=== PATIENT | female | born 1965 | race Two or more races ===

== ENCOUNTER 2025-10-08 10:50 | Outpatient (AMB) | payer BC, SELFPAY ==
--- NOTE | 2025-10-08 10:54 | MHC.OFFVIS ---
Intake Visit Reasons: 1YR RLS HPI Comments Details: 60 years old woman with hypertension, hyperlipidemia, and restless legs syndrome. She was doing okay with no new symptoms. Ropinirole was working for restless legs syndrome. Review of Systems Narrative - Gastrointestinal: Reports a sensation of smelly stomach. - Neurological: Denies any additional neurological symptoms. - Psychological: Reports stress related to socio-political issues. Physical Exam Neuro Other: Mental Status: Alert and oriented to person, place, and time. Normal attention. Normal spontaneous speech, fluency, and comprehension. Cranial Nerves: CN II: Visual quispe full to confrontation, visual acuity intact. CN III, IV, : Pupils equal, round, reactive to light and accommodation. Extraocular movements are normal. CN V: Facial sensation is normal. CN VII: Facial movements symmetrical. CN VIII: Hearing intact to bedside conversation is normal. CN IX, X: Palate elevates symmetrically. CN XI: Shoulder shrug and head turn symmetrical. CN XII: Tongue midline without atrophy or fasciculations. Extrapyramidal: Full facial expressions and blinking. No rigidity. Movements are appropriate with no tremor or abnormality. Speech: Normal; no dysarthria or tremor. Assessment & Plan Assessment & Plan (1) RLS (restless legs syndrome): Comment: NCV/EMG UE Mild to moderate right and mild left median neuropathy across the Carpal tunnel. 08/17/22. EMG/NCS at office in 2009: mild b/l CTS, b/l distal tibial neuropathy NCV/EMG UE 08/28/13 MILD BILATERAL MEDIAN NEUROPATHY ACROSS THE CARPAL TUNNEL AFFECTING THE SENSORY COMPONENTS. THERE IS NO SIGNIFICANT DIFFERENCE FROM THE STUDY IN 2010. Code(s): G25.81 - Restless legs syndrome Category: Medical Plan Impression: Restless legs syndrome Recommendations: Ropinirole 0.25 mg 2-3 tablets at bedtime or in the evening Coding Level of Care Code Est Pt Level 3 (72480) Diagnoses RLS (restless legs syndrome) G25.81
--- OUTSIDE RECORDS SUMMARY | 2025-10-08 22:27 | XMS_ITS | Data Portability ---
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 I will give her a week of ciprofloxacin given she grew Pseudomonas in the past. I will have her continue the steroid irrigations and check an immune panel brie Not available 04/20/2025 09:43:50 Plan of Treatment Reminders Order Date Submit Date Provider Last Modified By Organization Details Last Modified Time Details Appointments None recorded. Lab clostridium tetani toxoid IgG Ab, QN, IA, serum or plasma 2024 025 [facility] (Centralized Electronic Ordering - All Locations), Patient Can Go To The Location Of Their Choice, 00:29:54 haemophilus influenzae B IgG Ab, quantitativ e, serum, immunoassay 2024 025 [facility] (Centralized Electronic Ordering - All Locations), Patient Can Go To The Location Of Their Choice, 5 00:29:53 unlisted lab - pneumococca l Ab (23 serotype) 2024 025 [facility]), Patient Can Go To The Location Of Their Choice, 00:29:52 CBC w/ auto diff 2024 025 [facility]), Patient Can Go To The Location Of Their Choice, [address] 00:29:52 ige, total, serum 2024 025 [facility] (Centralized Electronic Ordering - All Locations), Patient Can Go To The Location Of Their Choice, [address] 00:29:54 immunoglobu elsa iga+igg+igm , quantitativ e, serum 2024 025 [facility]), Patient Can Go To The Location Of Their Choice, [address] 00:29:53 igg subclasses + total, serum 2024 [facility]), Patient Can Go To The Location Of Their Choice, [address] 00:29:53 Referral None recorded. Procedures None recorded. Surgeries None recorded. Imaging None recorded. Medication Orders ciprofloxac in 750 mg tablet 2024 [id number], [address] [place], [address], 09:03:42 Patient TargetsNo targets recorded. Patient Instructions Encounter Date Encounter Id Patient Instructions Last Modified By Organization Details Last Modified Time 05/29/2024 [id number] Patient complain s of fluid sensation in left ear with related hearing loss. Otologic exam unrevealing. Audiometric testing obtained today and reviewed with patient demonstrates bilateral neurosensory hearing loss, affecting the frequencies of human speech, with resultant decreased speech discrimination. Reviewed with patient left hearing loss is amenable to hearing aids; recommend left-sided amplification. Recommend annual audiometric testing, sooner with perceived change in hearing. All questions were answered. [email or web address] Not available 05/29/2024 15:06:30 Reason for Referral None Reported. Results Created Date Observation Date Name Description Value Unit Range Abnormal Flag Note LastModifiedBy Organization Detail LastModifiedTime 04/20/2004/21/2025 CBC WITH DIFFE RENTI AL/PL ATELE T WBC 7.1 x10e3 /uL 3.4-10 .8 normal Not Available [facility] ([facility]) [address] [place], [address], 04/27/2025 00:29:52 04/20/2004/21/2025 CBC WITH DIFFE RENTI AL/PL ATELE T RBC 4.23 x10e6 /uL 3.77-5 .28 normal Not Available [facility] ([facility]) [address] [place], [address], 04/27/2025 00:29:52 04/20/2004/21/2025 CBC WITH DIFFE RENTI AL/PL ATELE T hemoglobin 15.1 g/dL 11.1-1 5.9 normal Not Available [facility] ([facility]) [address] [place], [address], 04/27/2025 00:29:52 04/20/2004/21/2025 CBC WITH DIFFE RENTI AL/PL ATELE T hematocrit 43.4 % 34.0-4 6.6 normal Not Available [facility] ([facility]) [address] [place], [address], 04/27/2025 00:29:52 04/20/2004/21/2025 CBC WITH DIFFE RENTI AL/PL ATELE T MCV 103 fL 79-97 above high normal Not Available [facility] ([facility]) [address] [place], [address], 04/27/2025 00:29:52 04/20/2004/21/2025 CBC WITH DIFFE RENTI AL/PL ATELE T MCH 35.7 pg 26.6-3 3.0 above high normal Not Available [facility] ([facility]) [address] [place], [address], 04/27/2025 00:29:52 04/20/2004/21/2025 CBC WITH DIFFE RENTI AL/PL ATELE T MCHC 34.8 g/dL 31.5-3 5.7 normal Not Available [facility] ([facility]) [address] [facility], [place], [address], 04/27/2025 00:29:52 04/20/2004/21/2025 CBC WITH DIFFE RENTI AL/PL ATELE T RDW 11.9 % 11.7-1 5.4 Not Available [facility] ([facility]) [address] [facility], [place], [address], 04/27/2025 00:29:52 04/20/2004/21/2025 CBC WITH DIFFE RENTI AL/PL ATELE T platelets 224 x10e3 /uL 150-45 0 normal Not Available [facility] ([facility]) [address] [facility], [place], [address], 04/27/2025 00:29:52 04/20/2004/21/2025 CBC WITH DIFFE RENTI AL/PL ATELE T neutrophils 57 % not estab. normal Not Available [facility] ([facility]) [address] [facility], [place], [address], 04/27/2025 00:29:52 04/20/2004/21/2025 CBC WITH DIFFE RENTI AL/PL ATELE T lymphs 34 % not estab. normal Not Available [facility] ([facility]) [address] [facility], [place], [address], 04/27/2025 00:29:52 04/20/2004/21/2025 CBC WITH DIFFE RENTI AL/PL ATELE T monocytes 8 % not estab. normal Not Available [facility] ([facility]) [address] [facility], [place], [address], 04/27/2025 00:29:52 04/20/2004/21/2025 CBC WITH DIFFE RENTI AL/PL ATELE T eos 1 % not estab. normal Not Available [facility] ([facility]) [address] [facility], [place], [address], 04/27/2025 00:29:52 04/20/2004/21/2025 CBC WITH DIFFE RENTI AL/PL ATELE T basos 0 % not estab. normal Not Available [facility] ([facility]) [address] [facility], [place], [address], 04/27/2025 00:29:52 04/20/2004/21/2025 CBC WITH DIFFE RENTI AL/PL ATELE T immature cells RISK AND INSURANCE MANAGER Not Available [facility] ([facility]) [address] [place], [address], 04/27/2025 00:29:52 04/20/2004/21/2025 CBC WITH DIFFE RENTI AL/PL ATELE T neutrophils (absolute) 4.1 x10e3 /uL 1.4-7. 0 normal Not Available [facility] ([facility]) [address] [place], [address], 04/27/2025 00:29:52 04/20/2004/21/2025 CBC WITH DIFFE RENTI AL/PL ATELE T lymphs (absolute) 2.4 x10e3 /uL 0.7-3. 1 normal Not Available [facility] ([facility]) [address] [place], [address], 04/27/2025 00:29:52 04/20/2004/21/2025 CBC WITH DIFFE RENTI AL/PL ATELE T monocytes(ab solute) 0.5 x10e3 /uL 0.1-0. 9 normal Not Available [facility] ([facility]) [address] [place], [address], 04/27/2025 00:29:52 04/20/2004/21/2025 CBC WITH DIFFE RENTI AL/PL ATELE T eos (absolute) 0.1 x10e3 /uL 0.0-0. 4 normal Not Available [facility] ([facility]) [address] [facility], [place], [address], 04/27/2025 00:29:52 04/20/2004/21/2025 CBC WITH DIFFE RENTI AL/PL ATELE T baso (absolute) 0.0 x10e3 /uL 0.0-0. 2 normal Not Available [facility] ([facility]) [address] [facility], [place], [address], 04/27/2025 00:29:52 04/20/2004/21/2025 CBC WITH DIFFE RENTI AL/PL ATELE T immature granulocytes 0 % not estab. Not Available [facility] ([facility]) [address] [facility], [place], [address], 04/27/2025 00:29:52 04/20/2004/21/2025 CBC WITH DIFFE RENTI AL/PL ATELE T immature grans (abs) 0.0 x10e3 /uL 0.0-0. 1 Not Available [facility] ([facility]) [address] [facility], [place], [address], 04/27/2025 00:29:52 04/20/2004/21/2025 CBC WITH DIFFE RENTI AL/PL ATELE T NRBC RISK AND INSURANCE MANAGER Not Available [facility] ([facility]) [address] [place], [address], 04/27/2025 00:29:52 04/20/2004/21/2025 CBC WITH DIFFE RENTI AL/PL ATELE T hematology comments: RISK AND INSURANCE MANAGER Not Available [facility] ([facility]) [address] [place], [address], 04/27/2025 00:29:52 04/20/2004/27/2025 PNEUM OCOCC AL AB (23 SEROT YPE) pneumo Ab type 1* <0.1 ug/mL >1.3 below low normal Not Available [facility] [address] [place], [address], 04/27/2025 00:29:52 04/20/2004/27/2025 PNEUM OCOCC AL AB (23 SEROT YPE) pneumo Ab type 3* <0.1 ug/mL >1.3 below low normal Not Available [facility] [place] [address] [place], [address], 04/27/2025 00:29:52 04/20/20 25 04/27/2025 PNEUM OCOCC AL AB (23 SEROT YPE) pneumo Ab type 4* <0.1 ug/mL >1.3 below low normal Not Available [facility] [address] [place] [address] [place], [address], 04/27/2025 00:29:52 04/20/20 25 04/27/2025 PNEUM OCOCC AL AB (23 SEROT YPE) pneumo Ab type 8* 42.6 ug/mL >1.3 Not Available [facility] [address] [place] [address] [place], [address], 04/27/2025 00:29:52 04/20/20 25 04/27/2025 PNEUM OCOCC AL AB (23 SEROT YPE) pneumo Ab type 9 (9N)* 3.0 ug/mL >1.3 Not Available [facility] [place], [address], 04/27/2025 00:29:52 04/20/2004/27/2025 PNEUM OCOCC AL AB (23 SEROT YPE) pneumo Ab type 12 (12F)* <0.1 ug/mL >1.3 below low normal Not Available [facility] [address] [place] [address] [place], [address], 04/27/2025 00:29:52 04/20/20 25 04/27/2025 PNEUM OCOCC AL AB (23 SEROT YPE) pneumo Ab type 14* 10.1 ug/mL >1.3 Not Available [facility] [address] [place], [address], 04/27/2025 00:29:52 04/20/20 25 04/27/2025 PNEUM OCOCC AL AB (23 SEROT YPE) pneumo Ab type 17 (17F)* 17.5 ug/mL >1.3 Not Available [facility] [address] [place] [address] [place], [address], 04/27/2025 00:29:52 04/20/20 25 04/27/2025 PNEUM OCOCC AL AB (23 SEROT YPE) pneumo Ab type 19 (19F)* <0.1 ug/mL >1.3 below low normal Not Available [facility] [address] [place] [address] [place], [address], 04/27/2025 00:29:52 04/20/20 25 04/27/2025 PNEUM OCOCC AL AB (23 SEROT YPE) pneumo Ab type 2* 5.0 ug/mL >1.3 Not Available [facility] [address] [place] [address] [place], [address], 04/27/2025 00:29:52 04/20/20 25 04/27/2025 PNEUM OCOCC AL AB (23 SEROT YPE) pneumo Ab type 20* 2.1 ug/mL >1.3 Not Available [facility] [address] [place], [address], 04/27/2025 00:29:52 04/20/20 25 04/27/2025 PNEUM OCOCC AL AB (23 SEROT YPE) pneumo Ab type 22 (22F)* 0.1 ug/mL >1.3 below low normal Not Available [facility] [address] [place], [address], 04/27/2025 00:29:52 04/20/20 25 04/27/2025 PNEUM OCOCC AL AB (23 SEROT YPE) pneumo Ab type 23 (23F)* 2.0 ug/mL >1.3 Not Available [facility] [address] [place] [address] [place], [address], 04/27/2025 00:29:52 04/20/20 25 04/27/2025 PNEUM OCOCC AL AB (23 SEROT YPE) pneumo Ab type 26 (6B)* 0.5 ug/mL >1.3 below low normal Not Available [facility] [address] [place] [address] [place], [address], 04/27/2025 00:29:52 04/20/2004/27/2025 PNEUM OCOCC AL AB (23 SEROT YPE) pneumo Ab type 34 (10A)* 39.5 ug/mL >1.3 Not Available [facility] [address] [place] [address] [place], [address], 04/27/2025 00:29:52 04/20/20 25 04/27/2025 PNEUM OCOCC AL AB (23 SEROT YPE) pneumo Ab type 43 (11A)* 0.6 ug/mL >1.3 below low normal Not Available [facility] [address] [place] [address] [place], [address], 04/27/2025 00:29:52 04/20/2004/27/2025 PNEUM OCOCC AL AB (23 SEROT YPE) pneumo Ab type 5* 2.9 ug/mL >1.3 Not Available [facility] [address] [place] [address] [place], [address], 04/27/2025 00:29:52 04/20/2004/27/2025 PNEUM OCOCC AL AB (23 SEROT YPE) pneumo Ab type 51 (7F)* 16.5 ug/mL >1.3 Not Available [facility] [address] [place] [address] [place], [address], 04/27/2025 00:29:52 04/20/20 25 04/27/2025 PNEUM OCOCC AL AB (23 SEROT YPE) pneumo Ab type 54 (15B)* 2.7 ug/mL >1.3 Not Available [facility] [address] [place], [address], 04/27/2025 00:29:52 04/20/20 25 04/27/2025 PNEUM OCOCC AL AB (23 SEROT YPE) pneumo Ab type 56 (18C)* 2.0 ug/mL >1.3 Not Available [facility] [address] [place], [address], 04/27/2025 00:29:52 04/20/20 25 04/27/2025 PNEUM OCOCC AL AB (23 SEROT YPE) pneumo Ab type 57 (19A)* 6.1 ug/mL >1.3 Not Available [facility] [address] [place], [address], 04/27/2025 00:29:52 04/20/20 25 04/27/2025 PNEUM OCOCC AL AB (23 SEROT YPE) pneumo Ab type 68 (9V)* 0.5 ug/mL >1.3 below low normal Not Available [facility] [address] [place], [address], 04/27/2025 00:29:52 04/20/2004/27/2025 PNEUM OCOCC AL AB (23 SEROT YPE) pneumo Ab type 70 (33F)* 9.5 ug/mL >1.3 *This test was devel oped and its perfo rmanc e juan cteri stics deter mined by [employer] [facility]. It has not been clear ed or appro sparkle by the U.S. Food and Drug Admin istra tion. FLAG Inter preta tion: A = Abnor mal, H = High, L = Low Not Available [facility] [address] [place], [address], 04/27/2025 00:29:52 04/20/20 25 04/21/2025 IGG, SUBCL ASSES (1-4) immunoglobul in g, qn, serum 1155 mg/dL 586-16 02 Not Available [facility] ([facility]) [address] [place], [address], 04/27/2025 00:29:53 04/20/20 25 04/24/2025 IGG, SUBCL ASSES (1-4) IgG, subclass 1 632 mg/dL 248-81 0 Not Available [facility] ([facility]) [address] [place], [address], 04/27/2025 00:29:53 04/20/20 25 04/24/2025 IGG, SUBCL ASSES (1-4) IgG, subclass 2 340 mg/dL 130-55 5 Not Available [facility] ([facility]) [address] [place], [address], 04/27/2025 00:29:53 04/20/20 25 04/24/2025 IGG, SUBCL ASSES (1-4) IgG, subclass 3 39 mg/dL 15-102 Not Available [facility] ([facility]) [address] [place], [address], 04/27/2025 00:29:53 04/20/20 25 04/24/2025 IGG, SUBCL ASSES (1-4) IgG, subclass 4 37 mg/dL 2-96 Not Available [facility] ([facility]) [address] [place], [address], 04/27/2025 00:29:53 04/20/2004/21/2025 IMMUN OGLOB ULINS A/G/M , QN, SER immunoglobul in A, qn, serum 301 mg/dL 87-352 normal Not Available [facility] ([facility]) [address] [place], [address], 04/27/2025 00:29:53 04/20/20 25 04/21/2025 IMMUN OGLOB ULINS A/G/M , QN, SER immunoglobul in M, qn, serum 318 mg/dL 26-217 above high normal Not Available [facility] ([facility]) [address] [facility], [place], [address], 04/27/2025 00:29:53 04/20/20 25 04/25/2025 HAEMO PHILU S INFLU ENZAE B IGG haemophilus influenzae B IgG 5.88 ug/mL NOTE: An anti- Hib level of 0.15 ug/mL is gener ally accep brody as the minim um level for prote ction . Optim al prote ction post- vacci natio n requi res a level great er than 1.00 ug/mL . Not Available [facility] ([facility]) [address] [facility], [place], [address], 04/27/2025 00:29:53 04/20/20 25 04/23/2025 TETAN US ANTIT OXOID IGG AB tetanus antitoxoid IgG Ab 3.08 IU/mL <0.10 Inter preta tion: Non-P rotec tive <0.10 Prote ctive >=0.1 0 Resul ts for this test are for resea rch purpo ses only by the assay 's manuf actur er. The perfo rmanc e juan cteri stics of this produ ct have not been estab wiliam d. Resul ts shoul d not be used as a diagn ostic proce dure witho ut confi rmati on of the diagn osis by [facility] medic ally estab lishe d diagn ostic produ ct or proce dure. Not Available [facility] ([facility]) [address] [facility], [place], [address], 04/27/2025 00:29:54 04/20/20 25 04/21/2025 IMMUN OGLOB ULIN E, TOTAL immunoglobul in E, total 1106 IU/mL 6-495 above high normal Not Available [facility] ([facility]) [address] [facility], [place], [address], 04/27/2025 00:29:54 06/21/2006/22/2025 CBC WITH DIFFE RENTI AL/PL ATELE T WBC 6.0 x10e3 /uL 3.4-10 .8 normal Not Available [facility] ([facility]) [address] [facility], [place], [address], 06/28/2025 01:32:48 06/21/2006/22/2025 CBC WITH DIFFE RENTI AL/PL ATELE T RBC 4.26 x10e6 /uL 3.77-5 .28 normal Not Available [facility] ([facility]) [address] [facility], [place], [address], 06/28/2025 01:32:48 06/21/2006/22/2025 CBC WITH DIFFE RENTI AL/PL ATELE T hemoglobin 15.0 g/dL 11.1-1 5.9 normal Not Available [facility] ([facility]) [address] [place], [address], 06/28/2025 01:32:48 06/21/2006/22/2025 CBC WITH DIFFE RENTI AL/PL ATELE T hematocrit 44.0 % 34.0-4 6.6 normal Not Available [facility] ([facility]) [address] [place], [address], 06/28/2025 01:32:48 06/21/2006/22/2025 CBC WITH DIFFE RENTI AL/PL ATELE T MCV 103 fL 79-97 above high normal Not Available [facility] ([facility]) [address] [place], [address], 06/28/2025 01:32:48 06/21/2006/22/2025 CBC WITH DIFFE RENTI AL/PL ATELE T MCH 35.2 pg 26.6-3 3.0 above high normal Not Available [facility] ([facility]) [address] [facility], [place], [address], 06/28/2025 01:32:48 06/21/20 25 06/22/2025 CBC WITH DIFFE RENTI AL/PL ATELE T MCHC 34.1 g/dL 31.5-3 5.7 normal Not Available [facility] ([facility]) [address] [facility], [place], [address], 06/28/2025 01:32:48 06/21/20 25 06/22/2025 CBC WITH DIFFE RENTI AL/PL ATELE T RDW 12.1 % 11.7-1 5.4 Not Available [facility] ([facility]) [address] [facility], [place], [address], 06/28/2025 01:32:48 06/21/20 25 06/22/2025 CBC WITH DIFFE RENTI AL/PL ATELE T platelets 247 x10e3 /uL 150-45 0 normal Not Available [facility] ([facility]) [address] [facility], [place], [address], 06/28/2025 01:32:48 06/21/20 25 06/22/2025 CBC WITH DIFFE RENTI AL/PL ATELE T neutrophils 59 % not estab. normal Not Available [facility] ([facility]) [address] [facility], [place], [address], 06/28/2025 01:32:48 06/21/20 25 06/22/2025 CBC WITH DIFFE RENTI AL/PL ATELE T lymphs 31 % not estab. normal Not Available [facility] ([facility]) [address] [place], [address], 06/28/2025 01:32:48 06/21/20 25 06/22/2025 CBC WITH DIFFE RENTI AL/PL ATELE T monocytes 8 % not estab. normal Not Available [facility] ([facility]) [address] [facility], [place], [address], 06/28/2025 01:32:48 06/21/2006/22/2025 CBC WITH DIFFE RENTI AL/PL ATELE T eos 1 % not estab. normal Not Available [facility] ([facility]) [address] [facility], [place], [address], 06/28/2025 01:32:48 06/21/2006/22/2025 CBC WITH DIFFE RENTI AL/PL ATELE T basos 1 % not estab. normal Not Available [facility] ([facility]) [address] [facility], [place], [address], 06/28/2025 01:32:48 06/21/2006/22/2025 CBC WITH DIFFE RENTI AL/PL ATELE T immature cells RISK AND INSURANCE MANAGER Not Available [facility] ([facility]) [address] [facility], [place], [address], 06/28/2025 01:32:48 06/21/20 25 06/22/2025 CBC WITH DIFFE RENTI AL/PL ATELE T neutrophils (absolute) 3.5 x10e3 /uL 1.4-7. 0 normal Not Available [facility] ([facility]) [address] [place], [address], 06/28/2025 01:32:48 06/21/2006/22/2025 CBC WITH DIFFE RENTI AL/PL ATELE T lymphs (absolute) 1.9 x10e3 /uL 0.7-3. 1 normal Not Available [facility] ([facility]) [address] [place], [address], 06/28/2025 01:32:48 06/21/20 25 06/22/2025 CBC WITH DIFFE RENTI AL/PL ATELE T monocytes(ab solute) 0.5 x10e3 /uL 0.1-0. 9 normal Not Available [facility] ([facility]) [address] [facility], [place], [address], 06/28/2025 01:32:48 06/21/2006/22/2025 CBC WITH DIFFE RENTI AL/PL ATELE T eos (absolute) 0.1 x10e3 /uL 0.0-0. 4 normal Not Available [facility] ([facility]) [address] [facility], [place], [address], 06/28/2025 01:32:48 06/21/2006/22/2025 CBC WITH DIFFE RENTI AL/PL ATELE T baso (absolute) 0.0 x10e3 /uL 0.0-0. 2 normal Not Available [facility] ([facility]) [address] [facility], [place], [address], 06/28/2025 01:32:48 06/21/2006/22/2025 CBC WITH DIFFE RENTI AL/PL ATELE T immature granulocytes 0 % not estab. Not Available [facility] ([facility]) [address] [facility], [place], [address], 06/28/2025 01:32:48 06/21/2006/22/2025 CBC WITH DIFFE RENTI AL/PL ATELE T immature grans (abs) 0.0 x10e3 /uL 0.0-0. 1 Not Available [facility] ([facility]) [address] [facility], [place], [address], 06/28/2025 01:32:48 06/21/2006/22/2025 CBC WITH DIFFE RENTI AL/PL ATELE T NRBC RISK AND INSURANCE MANAGER Not Available [facility] ([facility]) [address] [place], [address], 06/28/2025 01:32:48 06/21/20 25 06/22/2025 CBC WITH DIFFE RENTI AL/PL ATELE T hematology comments: RISK AND INSURANCE MANAGER Not Available [facility] ([facility]) [address] [place], [address], 06/28/2025 01:32:48 06/21/2006/28/2025 PNEUM OCOCC AL AB (23 SEROT YPE) pneumo Ab type 1* 1.3 ug/mL >1.3 below low normal Not Available [facility] [address] [place], [address], 06/28/2025 01:32:49 06/21/20 25 06/28/2025 PNEUM OCOCC AL AB (23 SEROT YPE) pneumo Ab type 3* 0.2 ug/mL >1.3 below low normal Not Available [facility] [address] [place], [address], 06/28/2025 01:32:49 06/21/2006/28/2025 PNEUM OCOCC AL AB (23 SEROT YPE) pneumo Ab type 4* 0.5 ug/mL >1.3 below low normal Not Available [facility] [address] [place], [address], 06/28/2025 01:32:49 06/21/2006/28/2025 PNEUM OCOCC AL AB (23 SEROT YPE) pneumo Ab type 8* 25.3 ug/mL >1.3 Not Available [facility] [address] [place], [address], 06/28/2025 01:32:49 06/21/2006/28/2025 PNEUM OCOCC AL AB (23 SEROT YPE) pneumo Ab type 9 (9N)* 3.8 ug/mL >1.3 Not Available [facility] [address] [place], [address], 06/28/2025 01:32:49 06/21/20 25 06/28/2025 PNEUM OCOCC AL AB (23 SEROT YPE) pneumo Ab type 12 (12F)* 0.5 ug/mL >1.3 below low normal Not Available [facility] [address] [place] [address] [place], [address], 06/28/2025 01:32:49 06/21/2006/28/2025 PNEUM OCOCC AL AB (23 SEROT YPE) pneumo Ab type 14* 7.4 ug/mL >1.3 Not Available [facility] [address] [place] [address] [place], [address], 06/28/2025 01:32:49 06/21/20 25 06/28/2025 PNEUM OCOCC AL AB (23 SEROT YPE) pneumo Ab type 17 (17F)* 7.8 ug/mL >1.3 Not Available [facility] [address] [place] [address] [place], [address], 06/28/2025 01:32:49 06/21/20 25 06/28/2025 PNEUM OCOCC AL AB (23 SEROT YPE) pneumo Ab type 19 (19F)* 6.2 ug/mL >1.3 Not Available [facility] [address] [place] [address] [place], [address], 06/28/2025 01:32:49 06/21/20 25 06/28/2025 PNEUM OCOCC AL AB (23 SEROT YPE) pneumo Ab type 2* 5.8 ug/mL >1.3 Not Available [facility] [address] [place], [address], 06/28/2025 01:32:49 06/21/20 25 06/28/2025 PNEUM OCOCC AL AB (23 SEROT YPE) pneumo Ab type 20* 2.6 ug/mL >1.3 Not Available [facility] [address] [place], [address], 06/28/2025 01:32:49 06/21/20 25 06/28/2025 PNEUM OCOCC AL AB (23 SEROT YPE) pneumo Ab type 22 (22F)* 4.1 ug/mL >1.3 Not Available [facility] [address] [place] [address] [place], [address], 06/28/2025 01:32:49 06/21/2006/28/2025 PNEUM OCOCC AL AB (23 SEROT YPE) pneumo Ab type 23 (23F)* 13.5 ug/mL >1.3 Not Available [facility] [address] [place] [address] [place], [address], 06/28/2025 01:32:49 06/21/2006/28/2025 PNEUM OCOCC AL AB (23 SEROT YPE) pneumo Ab type 26 (6B)* 10.9 ug/mL >1.3 Not Available [facility] [address] [place] [address] [place], [address], 06/28/2025 01:32:49 06/21/2006/28/2025 PNEUM OCOCC AL AB (23 SEROT YPE) pneumo Ab type 34 (10A)* >44.1 ug/mL >1.3 Not Available [facility] [address] [place] [address] [place], [address], 06/28/2025 01:32:49 06/21/2006/28/2025 PNEUM OCOCC AL AB (23 SEROT YPE) pneumo Ab type 43 (11A)* 1.2 ug/mL >1.3 below low normal Not Available [facility] [address] [place] [address] [place], [address], 06/28/2025 01:32:49 06/21/2006/28/2025 PNEUM OCOCC AL AB (23 SEROT YPE) pneumo Ab type 5* 5.3 ug/mL >1.3 Not Available [facility] [address] [place] [address] [place], [address], 06/28/2025 01:32:49 07/3106/28/2025 PNEUM OCOCC AL AB (23 SEROT YPE) pneumo Ab type 51 (7F)* 14.5 ug/mL >1.3 Not Available [facility] [address] [place] [address] [place], [address], 06/28/2025 01:32:49 06/21/2006/28/2025 PNEUM OCOCC AL AB (23 SEROT YPE) pneumo Ab type 54 (15B)* 17.2 ug/mL >1.3 Not Available [facility] [address] [place] [address] [place], [address], 06/28/2025 01:32:49 06/21/2006/28/2025 PNEUM OCOCC AL AB (23 SEROT YPE) pneumo Ab type 56 (18C)* >12.2 ug/mL >1.3 Not Available [facility] [address] [place] [address] [place], [address], 06/28/2025 01:32:49 06/21/2006/28/2025 PNEUM OCOCC AL AB (23 SEROT YPE) pneumo Ab type 57 (19A)* 4.8 ug/mL >1.3 Not Available [facility] [address] [place], [address], 06/28/2025 01:32:49 06/21/2006/28/2025 PNEUM OCOCC AL AB (23 SEROT YPE) pneumo Ab type 68 (9V)* 2.1 ug/mL >1.3 Not Available [facility] [address] [place] [address] [place], [address], 06/28/2025 01:32:49 06/21/2006/28/2025 PNEUM OCOCC AL AB (23 SEROT YPE) pneumo Ab type 70 (33F)* 6.0 ug/mL >1.3 *This test was devel oped and its perfo rmanc e juan cteri stics deter mined by [employer] [facility]. It has not been clear ed or appro sparkle by the U.S. Food and Drug Admin istra tion. FLAG Inter preta tion: A = Abnor mal, H = High, L = Low Not Available [facility] [address] [place], [address], 06/28/2025 01:32:49 06/21/2006/22/2025 IGG, SUBCL ASSES (1-4) immunoglobul in g, qn, serum 1286 mg/dL 586-16 02 Not Available [facility] ([facility]) [address] [place], [address], 06/28/2025 01:32:49 06/21/20 25 06/23/2025 IGG, SUBCL ASSES (1-4) IgG, subclass 1 710 mg/dL 248-81 0 Not Available [facility] ([facility]) [address] [place], [address], 06/28/2025 01:32:49 06/21/20 25 06/23/2025 IGG, SUBCL ASSES (1-4) IgG, subclass 2 350 mg/dL 130-55 5 Not Available [facility] ([facility]) [address] [place], [address], 06/28/2025 01:32:49 06/21/2006/23/2025 IGG, SUBCL ASSES (1-4) IgG, subclass 3 36 mg/dL 15-102 Not Available [facility] ([facility]) [address] [place], [address], 06/28/2025 01:32:49 06/21/2006/23/2025 IGG, SUBCL ASSES (1-4) IgG, subclass 4 41 mg/dL 2-96 Not Available [facility] ([facility]) [address] [place], [address], 06/28/2025 01:32:49 06/21/20 25 06/22/2025 IMMUN OGLOB ULINS A/G/M , QN, SER immunoglobul in A, qn, serum 310 mg/dL 87-352 normal Not Available [facility] ([facility]) [address] [place], [address], 06/28/2025 01:32:50 06/21/20 25 06/22/2025 IMMUN OGLOB ULINS A/G/M , QN, SER immunoglobul in M, qn, serum 293 mg/dL 26-217 above high normal Not Available [facility] ([facility]) [address] [place], [address], 06/28/2025 01:32:50 06/21/20 25 06/27/2025 HAEMO PHILU S INFLU ENZAE B IGG haemophilus influenzae B IgG 2.49 ug/mL NOTE: An anti- Hib level of 0.15 ug/mL is gener ally accep brody as the minim um level for prote ction . Optim al prote ction post- vacci natio n requi res a level great er than 1.00 ug/mL . Not Available [facility] ([facility]) [address] [facility], [place], [address], 06/28/2025 01:32:50 06/21/20 25 06/22/2025 TETAN US ANTIT OXOID IGG AB tetanus antitoxoid IgG Ab 4.76 IU/mL <0.10 Inter preta tion: Non-P rotec tive <0.10 Prote ctive >=0.1 0 Resul ts for this test are for resea rch purpo ses only by the assay 's manuf actur er. The perfo rmanc e juan cteri stics of this produ ct have not been estab wiliam monroe. Resul ts shoul d not be used as a diagn ostic proce dure witho ut confi rmati on of the diagn osis by [facility] medic ally estab lishe d diagn ostic produ ct or proce dure. Not Available [facility] ([facility]) [address] [facility], [place], [address], 06/28/2025 01:32:50 06/21/20 25 06/23/2025 IMMUN OGLOB ULIN E, TOTAL immunoglobul in E, total 912 IU/mL 6-495 above high normal Not Available [facility] ([facility]) [address] [facility], [place], [address], 06/28/2025 01:32:51 05/29/20 24 audio gram No observ ation record ed. [email or web address] Not Available 06/2024 13:38:39 07/11/20 24 01/01/2023 imagi ng/di agnos tic resul t No observ ation record ed. [email or web address] Not Available 15:32:19 07/11/20 24 01/16/2023 imagi ng/di agnos tic resul t No observ ation record ed. [email or web address] Not Available 15:32:21 07/11/20 24 02/04/2023 imagi ng/di agnos tic resul t No observ ation record ed. [email or web address] Not Available 15:32:23 07/11/20 24 02/15/2023 imagi ng/di agnos tic resul t No observ ation record ed. [email or web address] Not Available 15:32:24 07/11/20 24 03/25/2021 imagi ng/di agnos tic resul t No observ ation record ed. [email or web address] Not Available 15:32:26 07/11/20 24 05/06/2021 imagi ng/di agnos tic resul t No observ ation record ed. [email or web address] Not Available 15:32:30 07/11/20 24 05/09/2021 imagi ng/di agnos tic resul t No observ ation record ed. [email or web address] Not Available 15:32:36 07/11/20 24 08/04/2019 imagi ng/di agnos tic resul t No observ ation record ed. [email or web address] Not Available 15:32:42 07/11/20 24 08/21/2020 imagi ng/di stellaos tic resul t No observ ation record ed. [email or web address] Not Available 15:32:50 07/11/20 24 01/01/2023 audio gram No observ ation record ed. [email or web address] Not Available 15:33:07 07/11/20 24 02/15/2023 audio gram No observ ation record ed. [email or web address] Not Available 15:33:14 Result Notes None recorded. Problems Name Problem SNOMED Code Status Onset Date Resolution Date Notes Provider Name and Address Organization Details Recorded Time Chronic ethmoidal sinusitis 84799748 Active 2014 Ethmoidal sinusitis , chronic; Condition : stable No te: Date Diagnosed : 01/28/2015 10:10 AM (473.2) Not Available [facility] 4 03:09:13 Allergic rhinitis 91831486 Active 2018 Perennial allergic rhinitis; Note: Date Diagnosed : 08/04/2019 10:24 AM (J30.89) Not Available [facility] 4 03:09:13 Sensorine ural hearing loss of bilateral ears 242183236 Active 2018 Sensorine ural hearing loss, bilateral ; Note: Date Diagnosed : 08/04/2019 9:59 AM (H90.3) Not Available [facility] 4 03:09:13 Pain of left temporoma ndibular joint 32094972978 214054 Active 2018 Arthralgi a of left temporoma ndibular joint; Note: Date Diagnosed : 9 1:35 PM (M26.622) Not Available [facility] 4 03:09:12 Acute sinusitis 20058668 Active 2018 Other acute sinusitis ; Note: Date Diagnosed : 9 1:36 PM (J01.80) Note: Date Diagnosed : 9 1:36 PM (J01.80) Not Available [facility] 4 01:20:21 Referred otalgia 94262022 Active 2018 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; Note: Date Diagnosed : 9 1:34 PM (388.72) Not Available [facility] 4 03:09:14 Chronic sinusitis 68116690 Active 2019 Chronic sinusitis ; [facility] Treatment : new problem (to examiner) : additiona l workup planned N ote: Date Diagnosed : 12/31/2014 9:27 AM (473.9) ; Start Date : 5 Other chronic sinusitis ; Note: Date Diagnosed : 08/21/2020 2:13 PM (J32.8) SEVEN CALDERON MD [address] [place] [address], [facility] [place], [address] , [facility] 5 09:02:54 Mass of neck 113476208 Active 2019 Localized swelling, mass and lump, neck; Note: Date Diagnosed : 08/21/2020 2:13 PM (R22.1) Not Available [facility] 4 03:09:12 Neck swelling 685939660 Active 2019 Localized swelling, mass and lump, neck; Note: Date Diagnosed : 08/21/2020 2:13 PM (R22.1) Not Available [facility] 4 03:09:12 Mycosis 0304321 Active 2020 Other specified mycoses; Note: Date Diagnosed : 05/06/2021 12:52 PM (B48.8) Not Available [facility] 4 03:09:14 Headache 08397188 Active 2020 Headache, unspecifi ed; Note: Changed from R51 to R51.9 ( 1 8:13 AM) , Date Diagnosed : 06/04/2021 3:13 PM (R51) Not Available [facility] 4 03:09:14 Sudden idiopathi c hearing loss 161885823 Active 2022 Sudden idiopathi c hearing loss, left ear; Note: Date Diagnosed : 01/14/2023 11:34 AM (H91.22) Sudden idiopathi c hearing loss, left ear; Note: Date Diagnosed : 01/01/2023 10:08 AM (H91.22) ; Start Date : 3 Not Available [facility] 4 03:09:12 Otorrhea of right ear [id number] 13261 Active 2023 SEVEN CALDERON MD [address] [facility],[place] [address], [place], [address] , [facility] 4 10:40:25 Problem Notes None recorded. Procedures Surgical History Date Name Laterality Status Provider Name and Address Organization Details Recorded Time 5 JMSNasal/Sinus Endoscopy completed SEVEN HALEY MD [address] [place] [address],[address], [address], [facility] 04/20/2025 09:43:25 4 Air & Speech Audio with Tymps - 32208, [address]51 & 66099 completed MARY LIMA [address] [place] [address],[place] [address], [place], [address], [facility] 05/29/2024 11:59:01 Imaging Results None recorded. Procedure Notes None recorded. Medical Equipment None Reported. Allergies Allergen ID Allergen Name Allergen Category Reaction Reaction Severity Criticality Documentation Date Start Date Code Code System Note Provider Name and Address Organization Details Recorded Time [id number] doxycycli ne Not available Not available Not available Not available 04/04/2024 3640 RxNorm React ion: other react ion, gi u; Not Available [facility] 4 01:28:08 Medications Name Sig Start Date Stop Date Status Note LastModified by Organization Details LastModified Time cyclobenz aprine 10 mg tablet TAKE 1 TABLET BY MOUTH ONCE DAILY AT BEDTIME MAY CAUSE DROWSINE SS. DO NOT TAKE IF DRIVING 04/20 completed Not Available Not Available Not Available budesonid e 32 mcg/actua tion nasal spray 2 spray 2020 active Medicati on ID: [id number] D uration Value: 30 Prescri bed By Name: Seven ziegler M.D. Bra lamin Name: beverly Nam Method: E-Prescr ibed Sub s Allowed: subs OK Medic ationGen ericName : budesoni de Not Available Not Available Not Available prednison e 10 mg tablet TAKE ONE TABLET BY MOUTH EVERY DAY FOR 5 DAYS 04/20 completed Not Available Not Available Not Available doxycycli ne hyclate 100 mg capsule by mouth 03/24 completed Medicati on ID: [id number] P rescribe d By Name: Bay Ackerman nd Name: doxycycl ine hyclate Send Method: E-Prescr ibed Sub s Allowed: subs OK Speci al Instruct ion: Take 1 PO bid X 2 weeks Me dication GenericN nidia: doxycycl ine hyclate Not Available Not Available Not Available ciproflox acin 750 mg tablet TAKE ONE TABLET BY MOUTH EVERY 12 HOURS active Not Available Not Available No t Available lisinopri l 20 mg-hydroc hlorothia zide 12.5 mg tablet 11/10 completed Medicati on ID: [id number] Du ration Value: 30 Reason: () Brand Name: lisinopr il-hydro chloroth iazide S end Method: E-Prescr ibed Sub s Allowed: subs OK Medic ationGen ericName : lisinopr il-hydro chloroth iazide Not Available Not Available Not Available prednison e 20 mg tablet 2 tablet by mouth 04/20 completed Medicati on ID: [id number] D uration Value: 3 Prescri bed By Name: DIANA Mcwilliams nd Name: predniso ne Send Method: E-Prescr ibed Sub s Allowed: subs OK Speci al Instruct ion: 2 tabs daily for 3 days Med icationG enericNa me: predniso ne Not Available Not Available Not Available amlodipin e 2.5 mg tablet TAKE ONE TABLET BY MOUTH EVERY DAY active Not Available Not Available No t Available ofloxacin 0.3 % ear drops 4 drop into both ears 04/20 completed Medicati on ID: [id number] D uration Value: 3 Brand Name: ofloxaci n Send Method: E-Prescr ibed Sub s Allowed: subs OK Medic ationGen ericName : ofloxaci n Not Available Not Available Not Available ropinirol e 0.25 mg tablet TAKE TWO TO THREE TABLETS BY MOUTH ONCE DAILY active Not Available Not Available No t Available doxycycli ne monohydra te 100 mg capsule 1 capsule by mouth 04/20 completed Medicati on ID: [id number] D uration Value: 10 Prescri bed By Name: DIANA Mcwilliams nd Name: doxycycl ine monohydr ate Send Method: E-Prescr ibed Sub s Allowed: subs OK Medic ationGen ericName : doxycycl ine monohydr ate Not Available Not Available Not Available simvastat in 20 mg tablet 11/10 completed Medicati on ID: [id number] Du ration Value: 30 Reason: () Brand Name: simvasta tin Send Method: E-Prescr ibed Sub s Allowed: subs OK Medic ationGen ericName : simvasta tin Not Available Not Available Not Available Cipro 500 mg tablet 1 tablet by mouth 05/21 completed Medicati on ID: [id number] D uration Value: 10 Prescri bed By Name: Bay Ackerman nd Name: Cipro Se nd Method: E-Prescr ibed Sub s Allowed: subs OK Medic ationGen ericName : Cipro Not Available Not Available Not Available nitrofura ntoin macrocrys juanjose 100 mg capsule TAKE ONE CAPSULE BY MOUTH TWICE A DAY FOR 5 DAYS 04/20 completed Not Available Not Available Not Available prednison e 50 mg tablet TAKE ONE TABLET BY MOUTH EVERY DAY FOR 5 DAYS - TAKE WITH FOOD OR MILK 04/20 completed Not Available Not Available Not Available budesonid e 0.5 mg/2 mL suspensio n for nebulizat ion USE ONE VIAL IN NEILMED, RINSE TWO TIMES A DAY USING 1/2 BOTTLE PER NOSTRIL 2024 active Not Available Not Available Not Avai lable lisinopri l 20 mg-hydroc hlorothia zide 25 mg tablet TAKE ONE TABLET BY MOUTH EVERY DAY active Not Available Not Available No t Available propranol ol 20 mg tablet TAKE ONE TABLET BY MOUTH THREE TIMES A DAY active Not Available Not Available No t Available fluticaso ne propionat e 50 mcg/actua tion nasal spray,blake pension 2 PUFFS NASALLY ONCE A DAY active Not Available Not Available No t Available amoxicill in 875 mg-potass ium clavulana te 125 mg tablet TAKE ONE TABLET BY MOUTH TWICE A DAY WITH MEALS FOR 10 DAYS 04/20 completed Not Available Not Available Not Available Bactrim DS 800 mg-160 mg tablet Take 1 tablet by mouth every twelve hours as directed 04/20 completed Medicati on ID: [id number] D uration Value: 10 Prescri bed By Name: Seven ziegler M.D. Bra nd Name: Bactrim DS Send Method: E-Prescr ibed Sub s Allowed: subs OK Speci al Instruct ion: Yogurt/p robiotic concurre ntly Med icationG enericNa me: Bactrim DS Not Available Not Available Not Available ciproflox acin 0.3 %-dexamet hasone 0.1 % ear drops,blake pension INSTILL FOUR DROPS TO THE AFFECTED EAR S) TWICE A DAY FOR 7 DAYS 04/20 completed Not Available Not Available Not Available rosuvasta tin 5 mg tablet TAKE ONE TABLET BY MOUTH EVERY DAY active Not Available Not Available No t Available fenofibra te nanocryst allized 48 mg tablet TAKE ONE TABLET BY MOUTH EVERY DAY 04/20 completed Not Available Not Available Not Available fenofibra te 54 mg tablet TAKE ONE TABLET BY MOUTH EVERY DAY 04/20 completed Not Available Not Available Not Available Xhance 93 mcg/actua tion breath activated aerosol [place] 1 spray twice a day by intranas al route. 2024 active Not Available Not Available Not Avai lable Vitals None Recorded Social History None recorded. Functional Status None recorded. Mental Status None recorded. Family History Nothing Reported. Medical History Condition Response Hypertension Y High Cholesterol Y Gynecological HistoryNo gynecological history recorded. Obstetrics History GPAL:G 0 P 0 0 0 0 Past Encounters Encounter ID Performer Location Encounter Start Date Encounter Closed Date Diagnosis/Indication Diagnosis SNOMED-CT Code Diagnosis ICD10 Code Diagnosis IMO Codes Diagnosis Note [id number] DEMOND HOLLAND PA-C [facility] [address] [place] [address] 05/29/2024 11:15:56 05/29/2024 12:07:01 Sensorineural hearing loss of bilateral ears 804105745 H90.3 Audiologic al evaluation results: Right ear: Normal sloping to a mild sensorineu ral hearing loss with excellent word recognitio n. Left ear: Normal sloping to a moderate sensorineu ral hearing loss with excellent word recognitio n. Tympanomet ry: Right Ear:Type A Left Ear:Type A [id number] SEVEN CALDERON MD [facility] [address] [place] [address] 04/20/2025 08:17:14 04/20/2025 10:35:29 Chronic sinusitis 81313090 J32.8 22544 Health Concerns Section Related Observation LastModified by Organization Detai ls LastModified Time None Recorded Concern Status LastModified by Organization Details LastModified Time None Recorded Advance Directives Directive None Recorded Payers Insurance Date Sequence Insurance Name Policy Number Policy Salmon Covered Member ID Salmon Member ID Guarantor Name 05/29/2024 1 [employer] [place] [id number] Kathy T Ean [id number] Kathy Dre Ean 04/23/2025 1 [place] [id number] Calvin Mckoy [id number] Kathy Erickson Ean 04/23/2025 1 [place] [id number] aClvin Mckoy [id number] Kathy Erickson Ean 04/20/2025 1 [id number] [id number] Calvin Dre Ean [id number] Kathy Erickson Ean Notes Date Note Type Note Provider Name and Address Organization Details Recorded Time 05/29/2024 text/html ROS as noted in the HPI 58 year old female presents for evaluation of ears. Reports about a month ago she went to for sinus infection and was told there was an orange foreign body in the right ear. Uses ear plugs for sleep, thinks it might be a piece of that. 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 Reports the left ear feels full of fluid, can hear it when she shakes her head. No otorrhea, no change in hearing. AREN PONCE MD [address] [place], [place] [address] [address], [place], [address], [facility] - [facility] 05/29/2024 22:08:19 04/20/2025 text/html ROS as noted in the HPI Patient reports that every 2 to 3 months she gets increased sinus congestion, pressure and colored nasal discharge. She had endoscopic sinus surgery in 2020 for extensive bacterial disease. She has been doing budesonide irrigations with the [employer]. She feels full and congested. She did have an MRI in 2022 showing some thickening in the sinuses SEVEN HALEY MD [address] [facility], [place], [address], [facility] - [facility] 04/20/2025 09:44:06 OBGyn Episode No OBEpisode recorded.
== END 2025-10-08 11:08 | disposition home or self-care (01) ==
LOC: HO.HSM 10:51
PROVIDERS: PCP Nurse Practitioner Gerontology; Referring Provider Nurse Practitioner Gerontology; Visit Provider Psychiatry & Neurology Neurology
DX: G25.81 Restless legs syndrome (principal)
CPT/HCPCS: 99213